=== PATIENT | male | born 1965 | race Caucasian/White ===

== ENCOUNTER 2017-09-02 01:17 | Emergency (ER) | payer MEDICAID, OTHER ==
[~2017-09-02] VITALS: Ht 175.3 cm; Wt 104.5 kg
[2017-09-02 01:18] VITALS: BP 132/88
[2017-09-02] MEDS ORDERED: DIAZEPAM 5 MG TABLET PO ONE (02:30)
[2017-09-02] MEDS ORDERED: KETOROLAC 30 MG/1 ML IM ONE (02:30)
[2017-09-02] MEDS ORDERED: KETOROLAC 30 MG/1 ML ONE (02:36)
[2017-09-02] MEDS ORDERED: DIAZEPAM 5 MG TABLET ONE (02:36)
== END 2017-09-02 03:34 | disposition home or self-care (01) ==
LOC: ED 03:09
DX: M25.521 Pain in right elbow (principal)
CPT/HCPCS: 73080; 96372; 99284; J1885